=== PATIENT | male | born 1995 | race Hispanic/Latino ===

== ENCOUNTER 2024-09-18 15:48 | Emergency (ER) | payer OTHER ==
[~2024-09-18] VITALS: Ht 165.1 cm; Wt 67.1 kg
[2024-09-18 16:21] LABS: IMMATURE GRANULOCYTE ABSOLUTE 0.03 K/uL (0-1); NUCLEATED RED BLOOD CELLS 0.0 % (0.0-0.19); PLATELET COUNT (AUTO) 306 K/uL (130-400); RED BLOOD CELL COUNT(AUTO) 5.06 MIL/uL (4.50-6.20); RED CELL DISTRIBUTION WIDTH 13.1 % (11.0-15.5); WHITE BLOOD COUNT (AUTO) 10.1 K/uL (4.8-10.8)
[2024-09-18 16:32] LABS: CREATININE 1.3 mg/dL (0.5-1.3); GLOMERULAR FILTR. RATE CALC 76 mL/min (>90); GLUCOSE,RANDOM 163 mg/dL (70-105); SODIUM SERUM 139 mmol/L (136-145); UREA NITROGEN, BLOOD 20 mg/dL (7-18)
[2024-09-18 16:46] LABS: ALCOHOL, BLOOD < 3 mg/dL (0-10)
[2024-09-18 17:10] LABS: APPEARANCE,URINE CLEAR (CLEAR); GLUCOSE, URINE (UA) NEGATIVE (NEGATIVE); LEUKOCYTE ESTERASE ,URINE NEGATIVE Leu/uL (NEGATIVE); NITRATE,URINE NEGATIVE (NEGATIVE); OCCULT BLOOD,URINE NEGATIVE (NEGATIVE)
[2024-09-18 17:12] LABS: ADD UA MICROSCOPIC YES
[2024-09-18 17:14] LABS: OTHER CASTS, URINE 7 /LPF (None Seen); SQUAMOUS EPITHELIAL CELL,UR RARE /HPF (0-2)
[2024-09-18 17:16] LABS: AMPHET/METH SCREEN,URINE NEGATIVE (NEGATIVE); BARBITURATE SCREEN, URINE NEGATIVE (NEGATIVE); CANNABINOID SCREEN,URINE NEGATIVE (NEGATIVE); COCAINE SCREEN,URINE POSITIVE (NEGATIVE)
--- NOTE | 2024-09-18 17:17 | NUR ---
SPOKE TO [facility] HOTLINE WORKER, SHE WILL NOTIFY YARD COUPLERALIGNING INSPECTOR TO COME SCREEN PT.
--- NOTE | 2024-09-18 18:29 | NUR ---
SCREENER AT BEDSIDE
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
--- NOTE | 2024-09-18 22:46 | NUR ---
[facility] CRISIS LINE CALLED TO REQUEST SCREENING
--- NOTE | 2024-09-18 22:54 | NUR ---
TRANSFER PT. HAS BEEN ACCEPTED BY LAURI TUCKER MD FOR TRANSFER TO [facility] ER FOR S.A.N.E. [facility] STATES THAT THEY WILL PROVIDE THE 1:1 SITTER WHILE PT. IS IN THEIR FACILITY BUT THIS PATIENT WILL BE RETURNED TO [facility] ONCE EXAM IS DONE. BECAUSE REPORT HAS BEEN GIVEN TO THE S.A. NURSE EXAMINER ([phone]), REPORT TO THE ER CHARGE NURSE IS DECLINED. [facility] ADMIN AWARE OF PT. RETURNING TO OUR FACILITY.
--- NOTE | 2024-09-18 23:12 | NUR ---
[facility] CALLED FOR TRANSPORT
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
--- NOTE | 2024-09-19 02:16 | NUR ---
[facility] CALLED INQUIRING ABOUT A RETURN TRIP FOR THE S.A.N.E. PT. HAVE VERIFIED THAT AND AMENDED THE [facility] FORM TO REFLECT THAT AND FAXED IT TO [facility].
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
--- NOTE | 2024-09-19 02:52 | NUR ---
PRESENTED CASE TO CHUY MILLER.
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
--- NOTE | 2024-09-19 12:30 | NUR ---
BART WITH [facility] BY TO SPEAK TO PT.
--- NOTE | 2024-09-19 13:30 | NUR ---
PER NIHARIKA WITH MAMAD[facility], SHE WILL COMPLETE SCREENING, BUT [facility] IS UNABLE TO PLACE PT DUE TO PT BEING A . I CALLED [facility] TO LOOK FOR POSSIBLE PLACEMENT AND FAXED PAPERWORK. AWAITING CALL BACK.
--- NOTE | 2024-09-19 14:54 | NUR ---
SPOKE TO [facility] STAFF, PER WORKER, DOCTOR IS STILL REVIEW CASE.
[2024-09-19 15:06] VITALS: BP 115/72; PULSE 52; RESP 14; TEMP 97.6; O2SAT 99
--- NOTE | 2024-09-19 15:08 | NUR ---
MOT: [facility] ROOM: [facility]. ACCEPTING MD: BERNADETTE MIGUEL AT 14:55 ACCEPTING ENGINEERING VICE PRESIDENT: KIMMIE ROJAS AT 14:55. MADE KAVITHA ROBBINS AWARE OF SECTION AND NEED FOR TRANSPORT. PER DISPATCH, AN OFFICER WILL BE BY TO OCEAN FORWARDER PT.
--- NOTE | 2024-09-19 15:11 | NUR ---
MADE MOTHER, REYNA ANGUIANO AWARE OF ACCEPTANCE AT [facility].
--- NOTE | 2024-09-19 15:13 | NUR ---
GAVE REPORT TO LAURA HARTMAN AT [facility].
--- NOTE | 2024-09-19 15:27 | NUR ---
[place] pd officer aakash at bedside.
== END 2024-09-19 15:29 ==
LOC: EDH 15:48
DX: R45.851 Suicidal ideations (principal); F99 Mental disorder, not otherwise specified; F41.9 Anxiety disorder, unspecified; F32.A Depression, unspecified; Z98.890 Other specified postprocedural states; Z90.89 Acquired absence of other organs
CPT/HCPCS: 99285; 80048; 80305; 85025; 36415; 81001; G0481